=== PATIENT | female | born 1975 | race African-American/Black ===

== ENCOUNTER 2024-12-01 04:38 | Inpatient (IN) | payer MEDICAID ==
[~2024-12-01] VITALS: Ht 167.6 cm; Wt 102.4 kg
--- NOTE | 2024-12-01 05:10 | ED.PDOC ---
History of Present Illness HPI Comments 49 y/o F, with a history of diverticulitis, DM, HLD, and HTN, is BIBA for c/o sternal chest pain and nausea, today. Per EMS report, patient endorses on sudden and unprovoked onset of symptoms, this morning. She reports on pain being "pressure-like" in quality and that it radiates towards her back. Patient was noted by EMS to have been tachycardic and hypertensive on scene, with patient reporting on missing 1x dose of her HTN medication, yesterday. Patient also states on recent discharge for a right-hip replacement procedure, yesterday, as well. Patient denies any shortness of breath, palpitations, vomiting, fever, chills, or other associated symptoms or modifiers at this time. Chief Complaint: Chest Pain Time Seen by MD: 04:50 Reviewed Notes: Nurses Notes, Underground Bolting Machine Operator Notes, Medications, Allergies Allergies: Coded Allergies: Codeine (Verified Allergy, Unknown, 12/01/24) Information Source: Patient, Emergency Med Personnel Mode of Arrival: EMS Severity: Moderate Timing: Hours Duration: Since onset Prehospital treatment: 12 Lead EKG, Activity Assistant Past Medical History PAST MEDICAL HISTORY: DM, High Lipids, HTN Past Medical History (Other): diverticulitis All Other Systems: Reviewed and Negative (Comprehensive systems review obtained and negative except for what is stated in the HPI.) Physical Exam General Appearance: Mild Distress, Obese HEENT: Normal ENT Inspection, Pharynx Normal, TMs Normal Neck: Full Range of Motion, Non-Tender, Normal, Normal Inspection Respiratory: Chest Non-Tender, Lungs Clear, No Accessory Muscle Use, No Respiratory Distress, Normal Breath Sounds Cardiovascular: No Edema, No JVD, No Murmur, No Gallop, Normal Peripheral Pu lses, Tachycardia, Other (regular rhythm ) Breast Exam: Deferred Gastrointestinal: No Organomegaly, Non Tender, No Pulsatile Mass, Normal Bowel Sounds, Soft Genitalia: Deferred Pelvic: Deferred Rectal: Deferred Extremities: No calf tenderness, Normal capillary refill, Normal inspection, Normal range of motion, Non-tender, No pedal edema Musculoskeletal : Apperance: Normal Neurologic: Alert, communications department chairperson II-XII nml as Tested, No Motor Deficits, Normal Affect, Normal Mood, No Sensory Deficits Cerebellar Function: Normal Reflexes: Normal Skin: Diaphoresis, Dry, Normal Color, Warm Lymphatic: No Adenopathy Was a procedure done? Was a procedure done?: No EKG EKG : Pulse Rate (adult): 129 [place]: Normal Cardiac Rhythm: ST Block: None Hypertrophy: None ST: Normal Differential Dx Considerations may include: PE, KS, ACS, PNA, URI, angina, anxiety, costochondritis, pericarditis, gastritis, among others X-Ray, Labs, Meds, VS Vital Signs Date Time Temp Pulse Resp B/P (MAP) Pulse Ox O2 Delivery O2 Flow Rate FiO2 12/01/24 10:10 117 15 109/64 (79) 99 12/01/24 08:00 99 12/01/24 07:57 102 22 99 Room Air* 0 21 12/01/24 07:56 98.2 102 22 134/85 (101) 99 98.2 12/01/24 06:00 98.6 112 16 131/80 (97) 97 98.6 12/01/24 05:10 Room Air* 0 21 12/01/24 05:10 98.6 109 16 146/91 (109) 97 98.6 12/01/24 05:09 129 12/01/24 04:54 129 12/01/24 04:48 98.2 138 18 133/98 (110) 97 98.2 Lab Test 12/01/24 05:47 12/01/24 04:43 Range/Units Lactic Acid Level 1.2 0.4-2.0 mmol/L Magnesium Level 2.0 1.6-2.6 mg/dL Troponin I High Sensitivity < 3 L < 3 L </=34 ng/L Triglycerides Level 100 < 150 mg/dL Cholesterol Level 147 < 200 mg/dL LDL Cholesterol 67 < 100 mg/dL HDL Cholesterol 54 40-59 mg/dL White Blood Count 9.8 4.4-10.8 10^3/uL Red Blood Count 4.69 4.0-5.20 10^6/uL Hemoglobin 10.7 L 12.2-16.2 g/dL Hematocrit 34.3 L 36.0-46.0 % Mean Corpuscular Volume 73.0 L 80.0-100.0 fL Mean Corpuscular Hemoglobin 22.9 L 28.0-32.0 pg Mean Corpuscular Hemoglobin Concent 31.3 L 32.0-36.0 g/dL Red Cell Distribution Width 14.7 H 11.8-14.3 % Platelet Count 207 140-450 10^3/uL Mean Platelet Volume 9.0 6.9-10.8 fL Neutrophils (%) (Auto) 59.5 37.0-80.0 % Lymphocytes (%) (Auto) 26.0 10.0-50.0 % Monocytes (%) (Auto) 11.7 0.0-12.0 % Eosinophils (%) (Auto) 1.9 0.0-7.0 % Basophils (%) (Auto) 0.9 0.0-2.0 % Neutrophils # (Auto) 5.8 1.6-8.6 10 ^3/uL Lymphocytes # (Auto) 2.6 0.4-5.4 10 ^3/uL Monocytes # (Auto) 1.2 0-1.3 10 ^3/uL Eosinophils # (Auto) 0.2 0-0.8 10 ^3/uL Basophils # (Auto) 0.1 0-0.2 10 ^3/uL Nucleated Red Blood Cells 0.2 % Prothrombin Time 10.5 9.3-11.8 sec Prothrombin Time INR 0.99 0.9-1.15 Activated Partial Thromboplast Time 28.5 24.5-34.5 SEC D-Dimer, Quantitative 4.15 H 0.0-0.49 mg/L FEU Sodium Level 139 136-145 mmol/L Potassium Level 3.8 3.5-5.1 mmol/L Chloride Level 107 98-107 mmol/L Carbon Dioxide Level 22 20-31 mmol/L Anion Gap 10 5-15 Blood Urea Nitrogen 13 9-23 mg/dL Creatinine 0.77 0.550-1.02 mg/dL Glomerular Filtration Rate Calc 93 >90 mL/min BUN/Creatinine Ratio 16.9 10.0-20.0 Serum Glucose 142 H 74-106 mg/dL Calcium Level 9.9 8.7-10.4 mg/dL Total Bilirubin 0.6 0.2-1.0 mg/dL Aspartate Amino Transferase (AST) 23 13-40 U/L Alanine Aminotransferase (ALT) 15 7-40 U/L Alkaline Phosphatase 74 46-116 U/L B-Type Natriuretic Peptide 6.47 0-100 pg/mL Total Protein 7.1 5.7-8.2 g/dL Albumin 4.3 3.2-4.8 g/dL Lipase 34 12-53 U/L Time of 1ST Reevaluation: 05:20 Reevaluation 1ST: Unchanged Patient Education/Counseling: Diagnosis, Treatment Family Education/Counseling: No Family Present Additional Information Previous medical encounters reviewed: n/a The following tests were ordered, and results were reviewed by me: EKG, lactic acid w/reflex, D-dimer, BNP, PTPTT, lipase, CMP, CBC, blood culture, CXR Additional Information was gathered from interviewing the following independent historians: EMS I reviewed and agreed with the following test results read by other providers: CXR I discussed treatment and results with medical personnel and: Patient Departure 1 Departure Time of Disposition: 08:19 (Patient presented with chest pain that was concerning for possible STEMI, ACS, PE, Pneumonia, Muscle Strain, COPD, Dissection. Data: 1. I ordered and reviewed the result of at least 3 labs including a CBC, BMP, and Troponin. 2. I independently interpreted the following tests: EKG which shows in his tachycardia and Chest X-ray which shows benign chest.Risk:This patient has a high risk of morbidity due to further diagnostic testing or treatment and may suffer from an acute cardiac or respiratory disorder. Workup reveals concern for ACS and patient should be admitted for further workup and possible expert consultation. ) Impression: Primary Impression: Acute chest pain Disposition: 09 ADMITTED INPATIENT Admit to: Med Surg Condition: Serious Critical Care Note Critical Care Time?: Yes Critical care comment: Acute chest pain Authorized and Performed by: Sherwin Wood MD Total critical care time: Approximately 36 minutes Due to a high probability of clinically significant, life threatening de terioration, the patient required my highest level of preparedness to intervene emergently and I personally spent this critical care time directly and personally managing the patient. This critical care time included obtaining a history; examining the patient; pulse oximetry; ordering and review of studies; arranging urgent treatment with development of a management plan; evaluation of patient's response to treatment; frequent reassessment; and, discussions with other providers. This critical care time was performed to assess and manage the high probability of imminent, life-threatening deterioration that could result in multi-organ failure. It was exclusive of separately billable procedures and treating other patients and teaching time. Please see my other sections and the rest of the note for further information on patient assessment and treatment. Stability Stability form required: No Heart Score Heart Score: Heart Score Response (Comments) Value History Highly Suspicious 2 EKG Normal 0 Age 45-64 1 Risk Factors >3 or Hx ASHD 2 Troponin Normal limit 0 Total 5 I personally scribed for CHAO BAILEY MD ([email or web address]) on 12/01/24 at 05:09. Electronically submitted by Duran Ruvalcaba ([email or web address]). CHAO BAILEY MD Dec 01, 2024 05:09 SHERWIN WOOD MD Dec 01, 2024 08:20
[2024-12-01 05:11] LABS: Basophils # (auto) 0.1 10 ^3/uL (0-0.2); Basophils % (auto) 0.9 % (0.0-2.0); Eosinophils # (auto) 0.2 10 ^3/uL (0-0.8); Eosinophils % (auto) 1.9 % (0.0-7.0); Hematocrit 34.3 % (36.0-46.0); Hemoglobin 10.7 g/dL (12.2-16.2); Lymphocytes # (auto) 2.6 10 ^3/uL (0.4-5.4); Mean Corpuscular Hemoglobin 22.9 pg (28.0-32.0); Mean Corpuscular Hgb Conc. 31.3 g/dL (32.0-36.0); Monocytes # (auto) 1.2 10 ^3/uL (0-1.3); Monocytes % (auto) 11.7 % (0.0-12.0); Neutrophils # (auto) 5.8 10 ^3/uL (1.6-8.6); Neutrophils % (auto) 59.5 % (37.0-80.0); Nucleated Red Blood Cells % 0.2 %; Platelet Count (auto) 207 10^3/uL (140-450); Red Blood Cells 4.69 10^6/uL (4.0-5.20); Red Cell Distribution Width 14.7 % (11.8-14.3); White Blood Cell 9.8 10^3/uL (4.4-10.8)
--- NOTE | 2024-12-01 05:32 | DVH ---
CHEST RADIOGRAPH Indication: Chest pain Technique: Single frontal view of the chest was obtained Comparison: None FINDINGS: Lines and Tubes: None Lungs: No focal consolidation. Pleura: No effusion. No pneumothorax. Cardiomediastinal contours: Unremarkable Bones: No acute osseous abnormality. IMPRESSION: 1. No acute cardiopulmonary disease.
[2024-12-01 06:06] LABS: Alanine Aminotransferase 15 U/L (7-40); Albumin 4.3 g/dL (3.2-4.8); Alkaline Phosphatase 74 U/L (46-116); Anion Gap 10 (5-15); Aspartate Aminotransferase 23 U/L (13-40); BUN/Creatinine Ratio 16.9 (10.0-20.0); Blood Urea Nitrogen 13 mg/dL (9-23); Calcium 9.9 mg/dL (8.7-10.4); Carbon Dioxide 22 mmol/L (20-31); Lipase 34 U/L (12-53); Potassium 3.8 mmol/L (3.5-5.1); Sodium 139 mmol/L (136-145); Total Protein 7.1 g/dL (5.7-8.2)
[2024-12-01 06:07] LABS: Bilirubin, Total 0.6 mg/dL (0.2-1.0); Chloride 107 mmol/L (98-107); Glucose 142 mg/dL (74-106)
[2024-12-01 06:09] LABS: INR 0.99 (0.9-1.15); Partial Thromboplastin Time 28.5 SEC (24.5-34.5); Prothrombin Time 10.5 sec (9.3-11.8)
--- NOTE | 2024-12-01 06:25 | ECG ---
[facility] Test Date: 2024-12-01 Test Time: 04:54:51 Pat Name: MORALES DAVIS Department: ED Room: [address] [place] [address] Gender: F Automotive Sales Professional: AM : 1975 Requested By: CHAO BAILEY Order Number: [id number] Reading MD: Paco Landaverde Measurements Intervals [place] Rate: 129 P: 51 NH: 122 QRS: 32 QRSD: 88 T: 26 QT: 302 QTc: 443 Interpretive Statements Sinus tachycardia Probable left atrial enlargement Borderline repolarization abnormality Baseline wander in lead(s) II,III,aVR,aVL,aVF,V1,V3,V4,V5 Electronically Signed On 12-01-2024 18:51:30 PDT by Paco Landaverde Please click the below link to view image of tracing.
[2024-12-01] MEDS: IOHEXOL 350 MG/ML 100ML IJ ONE (07:11)
--- NOTE | 2024-12-01 07:30 | DVH ---
CTA Chest with intravenous contrast INDICATION: Chest pain, tachycardic, r/o PE COMPARISON: Chest radiograph performed on 12/01/2024. TECHNIQUE: Multidetector spiral CTA of the chest was performed of the chest with 100 cc of omnipaque 350 intravenous contrast. PULMONARY ANGIOGRAPHY PROTOCOL was utilized using a bolus-tracking techniqu e centered on the main pulmonary artery. Coronal and sagittal multiplanar and MIP reformats were perf ormed. Radiation Dose : 1. Chest: CTDI volume is 5.92 mGy. Dose-length product is 865.02 mGy*cm The dose indicators for CT are the volume Computed Tomography (CT) Dose Index (CTDIvol) and the Dose Length Product (DLP), and are measured in units of mGy and mGy-cm, respectively. These indicators are not patient dose, but values generated from the CT scanner acquisition factors. The report includes radiation exposure data for exposures received during this examination. FINDINGS: Pulmonary artery: No central, lobar or proximal segmental pulmonary embolus. Lower neck: Multinodular thyroid. Lungs: No evidence of pulmonary nodules, mass or consolidation. Central airways: Patent. Pleura: No pneumothorax. No pleural effusions. Heart/Vascular Structures: The heart is normal in size. No pericardial effusion. Thoracic aorta is no rmal in caliber. No aneurysm or dissection. Lymph Nodes: No mediastinal or hilar lymphadenopathy. Esophagus:Grossly unremarkable. Musculoskeletal: Unremarkable. Body wall: Unremarkable. Upper abdomen: Unremarkable. IMPRESSION: 1. No evidence of pulmonary embolism. 2. No acute disease. 3. Multinodular thyroid. This can be further evaluated with thyroid ultrasound.
[2024-12-01 07:57] VITALS: PULSE 102; RESP 22; O2SAT 99
[2024-12-01] MEDS ORDERED: ACETAMINOPHEN 325 MG TAB PO PRN (11:45)
[2024-12-01] MEDS ORDERED: NITROGLYCERIN 0.4 MG SL TAB SL PRN (11:45)
[2024-12-01] MEDS ORDERED: DEXTROSE (50%) 50ML SYRG IV PRN (12:15)
[2024-12-01 12:16] LABS: INR 1.04 (0.9-1.15); Partial Thromboplastin Time 25.6 SEC (24.5-34.5)
--- NOTE | 2024-12-01 12:30 | DVHHP2 ---
History of Present Illness History of Present Illness 49 y/o F, with a history of diverticulitis, DM, HLD, and HTN, is BIBA for c/o sternal chest pain and nausea, today. Per EMS report, patient endorses on sudden and unprovoked onset of symptoms, this morning. She reports on pain being "pressure-like" in quality and that it radiates towards her back. Patient was noted by EMS to have been tachycardic and hypertensive on scene, with patient reporting on missing 1x dose of her HTN medication, yesterday. Patient also states on recent discharge for a right-hip replacement procedure, yesterday, as well. Patient denies any shortness of breath, palpitations, vomiting, fever, chills, or other associated symptoms or modifiers at this time. She was noted to be tachycardic in the heart rate 100 to 120s in the ER. Given her chest discomfort with the tachycardia she has been brought into the hospital for further evaluation and management. Patient apparently had right hip surgery done at this hospital and discharged home 24 hours ago with the home physical therapy. Past Medical History Hypertension diabetes osteoarthritis Smoke: No ALCOHOL: rare Drugs: None Lives: with Family Review of Systems Review of Systems She denies any shortness for breath dizziness or lightheadedness. No headaches fevers chills or sweats. Patient says she was using walker to walk and home health is being arranged for home PT. Other review of systems reviewed normal. Allergies: Coded Allergies: Codeine (Verified Allergy, Unknown, 12/01/24) Medications Current Medications Medications Dose Ordered Sig/Venkatesh Route Start Time Stop Time Status Last Admin Dose Admin Nitroglycerin 0.4 mg Q5MINP PRN SL 12/01/24 11:45 Morphine Sulfate 2 mg Q30M PRN IV 12/01/24 11:45 Pantoprazole Sodium 40 mg BID IV 12/01/24 22:00 Ondansetron HCl 4 mg Q6HPRN PRN IV 12/01/24 11:45 Metoprolol Tartrate 25 mg BID PO 12/01/24 22:00 Acetaminophen 650 mg Q6HP PRN PO 12/01/24 11:45 Enoxaparin Sodium 40 mg DAILY SC 12/02/24 10:00 Diagnostic Test (Pha) 1 strip ACHS 12/01/24 17:00 Insulin Human Regular ACHS SC 12/01/24 17:00 Dextrose 50 ml UD PRN IV 12/01/24 12:15 Acetaminophen/ Hydrocodone Bitart 1 tab Q4HPRN PRN PO 12/01/24 12:15 Exam Vital Signs Vital Signs Date Time Temp Pulse Resp B/P (MAP) Pulse Ox O2 Delivery O2 Flow Rate FiO2 12/01/24 12:00 132 16 109/64 (79) 98 12/01/24 07:57 Room Air* 0 21 12/01/24 07:56 98.2 98.2 Exam She was comfortable in bed complains of mild chest discomfort in the left anterior chest. Not in any acute severe cardiopulmonary distress. HEENT pupils equal round react to light. Neck supple no JVD. Heart regular rate and rhythm tachycardia S1 plus S2. No murmurs. Lungs fair air movement chest tube will expansion without any rales or wheezes. Abdomen is obese soft nontender positive bowel sounds. Extremities positive distal pedal pulses. Right hip recent surgery area is covered with a dressing with some drainage. No erythema or significant edema noted. Labs/Xrays Labs Test 12/01/24 11:54 12/01/24 05:47 12/01/24 04:43 Range/Units Prothrombin Time 11.0 9.3-11.8 sec Prothrombin Time INR 1.04 0.9-1.15 Activated Partial Thromboplast Time 25.6 24.5-34.5 SEC Troponin I High Sensitivity < 3 L </=34 ng/L Lactic Acid Level 1.2 0.4-2.0 mmol/L White Blood Count 9.8 4.4-10.8 10^3/uL Red Blood Count 4.69 4.0-5.20 10^6/uL Hemoglobin 10.7 L 12.2-16.2 g/dL Hematocrit 34.3 L 36.0-46.0 % Mean Corpuscular Volume 73.0 L 80.0-100.0 fL Mean Corpuscular Hemoglobin 22.9 L 28.0-32.0 pg Mean Corpuscular Hemoglobin Concent 31.3 L 32.0-36.0 g/dL Red Cell Distribution Width 14.7 H 11.8-14.3 % Platelet Count 207 140-450 10^3/uL Mean Platelet Volume 9.0 6.9-10.8 fL Neutrophils (%) (Auto) 59.5 37.0-80.0 % Lymphocytes (%) (Auto) 26.0 10.0-50.0 % Monocytes (%) (Auto) 11.7 0.0-12.0 % Eosinophils (%) (Auto) 1.9 0.0-7.0 % Basophils (%) (Auto) 0.9 0.0-2.0 % Neutrophils # (Auto) 5.8 1.6-8.6 10 ^3/uL Lymphocytes # (Auto) 2.6 0.4-5.4 10 ^3/uL Monocytes # (Auto) 1.2 0-1.3 10 ^3/uL Eosinophils # (Auto) 0.2 0-0.8 10 ^3/uL Basophils # (Auto) 0.1 0-0.2 10 ^3/uL Nucleated Red Blood Cells 0.2 % D-Dimer, Quantitative 4.15 H 0.0-0.49 mg/L FEU Sodium Level 139 136-145 mmol/L Potassium Level 3.8 3.5-5.1 mmol/L Chloride Level 107 98-107 mmol/L Carbon Dioxide Level 22 20-31 mmol/L Anion Gap 10 5-15 Blood Urea Nitrogen 13 9-23 mg/dL Creatinine 0.77 0.550-1.02 mg/dL Glomerular Filtration Rate Calc 93 >90 mL/min BUN/Creatinine Ratio 16.9 10.0-20.0 Serum Glucose 142 H 74-106 mg/dL Calcium Level 9.9 8.7-10.4 mg/dL Total Bilirubin 0.6 0.2-1.0 mg/dL Aspartate Amino Transferase (AST) 23 13-40 U/L Alanine Aminotransferase (ALT) 15 7-40 U/L Alkaline Phosphatase 74 46-116 U/L B-Type Natriuretic Peptide 6.47 0-100 pg/mL Total Protein 7.1 5.7-8.2 g/dL Albumin 4.3 3.2-4.8 g/dL Lipase 34 12-53 U/L Assessment/Plan Assessment/Plan Given her chest discomfort with hypertension diabetic risk factors we will bring her to the hospital to rule out acute coronary UT. we will do serial troponins. We will do 2D echocardiogram. Cardiac consultation will be obtained. Otherwise physical therapy. Change right hip dressing daily. Accu-Cheks. Control her blood pressure. For tachycardia we will resume her home beta-terry and heart rate controlling medications as needed. Otherwise continue rest of supportive care and treatment. We will also check thyroid panel for tachycardia. DVT GI prophylaxis. Discussed with the patient regarding care plan. Plan discussed with: Patient My Orders Orders - JANETTE TORRES MD Procedure Category Date Status Time Admit ADMIT 12/01/24 Transmitted 11:40 Cardiac DIET 12/01/24 Transmitted Diet-2gna,Lofat,Lochol Lunch Echo 2d Mode Cardiac US 12/01/24 Logged DOP 11:40 * Gi Dvh Harvest Worker Field Crop CONS 12/01/24 Transmitted 11:40 Nitroglycerin PHA 12/01/24 In Process Sublingual (Ntrostat 11:45 Morphine Sulfate PHA 12/01/24 In Process Injection 11:45 Stat Ekg For Chest AKIRA 12/01/24 In Process Pain 11:40 Notify Md Of Changes AKIRA 12/01/24 In Process From Base 11:40 Duct Installer For AKIRA 12/01/24 In Process 24 Hours 11:40 Emergency Dysrhythmia AKIRA 12/01/24 In Process Protocol 11:40 Rhythm Strips Once AKIRA 12/01/24 In Process Every Shift 11:40 Oxygen By Nasal RT 12/01/24 Transmitted Cannula 11:40 Pantoprazole PHA 12/01/24 In Process (Protonix) 22:00 Ondansetron Hcl PHA 12/01/24 In Process (Zofran) 11:45 Metoprolol Tartrate PHA 12/01/24 In Process Tablet (Lopressor Ta 22:00 Acetaminophen Tablet PHA 12/01/24 In Process (Tylenol Tablet) 11:45 Pt Request For Service PT 12/01/24 Logged 11:41 Enoxaparin Sodium PHA 12/02/24 In Process (Lovenox) 10:00 Drug Screen LAB 12/01/24 Logged 11:41 * Cardiology Consult CONS 12/01/24 Transmitted 11:41 Glucose Blood PHA 12/01/24 In Process (Accu-Chek Comfort 17:00 Insulin R (Human) PHA 12/01/24 In Process (Insulin R) 17:00 Dextrose 50% Syringe PHA 12/01/24 In Process 12:15 *Consult Dr[address] Wilhelm CONS 12/01/24 Transmitted Elisa 12:07 Hydrocodone-Acet PHA 12/01/24 In Process 5/325mg Tab (Sharon 12:15 Problem List: (1) Acute chest pain JANETTE TORRES MD Dec 01, 2024 12:29
[2024-12-01] MEDS: DIGOXIN (250MCG/ML) 2 ML AMPULE IV ONE (12:35)
--- NOTE | 2024-12-01 13:17 | DVHINCON2 ---
GI Consult Consult Note GI consult note Date of Consultation: 12/01/2024 Chief Complaint: Epigastric pain Referring Physician: Dr. Reed H&P: 49-year-old female with past medical history of diverticulitis, DM, HLD and hypertension presented to ER with chest pain. Patient complaining of chest tightness and radiating to her back Complains of epigastric pain, improving now. Patient had nausea. No vomiting/hematemesis Patient has history of GERD, worse with certain foods. No medications for this No EGD in past. SP colonoscopy two months ago WNL per patient Patient is SP right hip surgery 11/27/2024 Past Medical History: DM, High Lipids, HTN, diverticulitis Past Surgical History: Right hip replacement Social History: NO smoking, drinking ETOH and use of illegal drugs. Family History: Noncontributory Review of Systems: Constitutional: no fever, chill, weight loss HEENT: no eye pain, no hearing loss, no oral lesion, no scleral icterus Heart: no chest pain, no chest pressure Lung: no cough, no dyspnea with exertion Abdomen: see HPI Physical exam: General: NAD, AAOX3 Chest: lung todd clear to auscultation Heart: RRR, no murmur Abdomen: non-distended, no tenderness to palpation, +BS Labs: Labs Test 12/01/24 11:54 12/01/24 05:47 12/01/24 04:43 Range/Units Prothrombin Time 11.0 9.3-11.8 sec Prothrombin Time INR 1.04 0.9-1.15 Activated Partial Thromboplast Time 25.6 24.5-34.5 SEC Troponin I High Sensitivity < 3 L </=34 ng/L Lactic Acid Level 1.2 0.4-2.0 mmol/L White Blood Count 9.8 4.4-10.8 10^3/uL Red Blood Count 4.69 4.0-5.20 10^6/uL Hemoglobin 10.7 L 12.2-16.2 g/dL Hematocrit 34.3 L 36.0-46.0 % Mean Corpuscular Volume 73.0 L 80.0-100.0 fL Mean Corpuscular Hemoglobin 22.9 L 28.0-32.0 pg Mean Corpuscular Hemoglobin Concent 31.3 L 32.0-36.0 g/dL Red Cell Distribution Width 14.7 H 11.8-14.3 % Platelet Count 207 140-450 10^3/uL Mean Platelet Volume 9.0 6.9-10.8 fL Neutrophils (%) (Auto) 59.5 37.0-80.0 % Lymphocytes (%) (Auto) 26.0 10.0-50.0 % Monocytes (%) (Auto) 11.7 0.0-12.0 % Eosinophils (%) (Auto) 1.9 0.0-7.0 % Basophils (%) (Auto) 0.9 0.0-2.0 % Neutrophils # (Auto) 5.8 1.6-8.6 10 ^3/uL Lymphocytes # (Auto) 2.6 0.4-5.4 10 ^3/uL Monocytes # (Auto) 1.2 0-1.3 10 ^3/uL Eosinophils # (Auto) 0.2 0-0.8 10 ^3/uL Basophils # (Auto) 0.1 0-0.2 10 ^3/uL Nucleated Red Blood Cells 0.2 % D-Dimer, Quantitative 4.15 H 0.0-0.49 mg/L FEU Sodium Level 139 136-145 mmol/L Potassium Level 3.8 3.5-5.1 mmol/L Chloride Level 107 98-107 mmol/L Carbon Dioxide Level 22 20-31 mmol/L Anion Gap 10 5-15 Blood Urea Nitrogen 13 9-23 mg/dL Creatinine 0.77 0.550-1.02 mg/dL Glomerular Filtration Rate Calc 93 >90 mL/min BUN/Creatinine Ratio 16.9 10.0-20.0 Serum Glucose 142 H 74-106 mg/dL Calcium Level 9.9 8.7-10.4 mg/dL Total Bilirubin 0.6 0.2-1.0 mg/dL Aspartate Amino Transferase (AST) 23 13-40 U/L Alanine Aminotransferase (ALT) 15 7-40 U/L Alkaline Phosphatase 74 46-116 U/L B-Type Natriuretic Peptide 6.47 0-100 pg/mL Total Protein 7.1 5.7-8.2 g/dL Albumin 4.3 3.2-4.8 g/dL Lipase 34 12-53 U/L Imaging: Assessment: Chest pain Nausea History of GERD Plan: Discussed with Dr. Randall Monitor labs Protonix and Carafate Zofran as needed Cardiology consult pending We will continue to follow this patient Thank you for this consult Date of Service: Dec 01, 2024 Billing Provider: HSREYAS GREY Common Visit Codes: CONSULT ONLY Consultation Codes: [id number] CONSULT <45MIN SHREYAS GREY Dec 01, 2024 13:17
--- NOTE | 2024-12-01 15:44 | DVHINCON2 ---
Date Seen: Dec 01, 2024 Referring Physician MD Derek Reason for Consultation Chest pain History of Present Illness This is a 49-year-old female patient who presents to emergency room with chief complaint of chest pain. The patient reports that the chest pain began at approximately 9:00 p.m. last night. She describes it as unprovoked, intermittent, squeezing in nature, substernal with radiation to her back. Associated symptoms include nausea. Initial twelve lead electrocardiogram reveals sinus tachycardia without any significant ST segment changes. Serial troponin levels have been negative. Significant past medical history includes hypertension, dyslipidemia, type 2 diabetes mellitus, diverticulitis, and osteoarthritis. Of note, the patient recently underwent a right hip replacement on 11/27/2024 at this facility (under different ). Past Medical History Past medical history reviewed. No other significant than mentioned above. Past Surgical History Right hip replacement on 11/27/2024 Family History Family history reviewed. Social History The patient reports that she quit vaping last month Denies any illicit drug use Denies any alcohol use Allergies: Coded Allergies: Codeine (Verified Allergy, Unknown, 12/01/24) Home Meds Home medications reviewed. Current Medications Current Medications Medications (Trade) Dose Ordered Sig/Venkatesh Route PRN Reason Start Time Stop Time Status Last Admin Nitroglycerin (Ntrostat Sublingual) 0.4 mg Q5MINP PRN SL FOR CHEST PAIN 12/01/24 11:45 Morphine Sulfate 2 mg Q30M PRN IV FOR CHEST PAIN 12/01/24 11:45 Pantoprazole Sodium (Protonix) 40 mg BID IV 12/01/24 22:00 Ondansetron HCl (Zofran) 4 mg Q6HPRN PRN IV NAUSEA / VOMITING 12/01/24 11:45 Metoprolol Tartrate (Lopressor Tablet) 25 mg BID PO 12/01/24 22:00 Acetaminophen (Tylenol Tablet) 650 mg Q6HP PRN PO PAIN SCALE 1-3 OR TEMP>100.4 12/01/24 11:45 Enoxaparin Sodium (Lovenox) 40 mg DAILY SC 12/02/24 10:00 Diagnostic Test (Pha) (Accu-Chek Comfort Curve T) 1 strip ACHS 12/01/24 17:00 Insulin Human Regular (InsuLIN R) ACHS SC 12/01/24 17:00 Dextrose 50 ml UD PRN IV Blood Sugar LESS THAN 60 12/01/24 12:15 Acetaminophen/ Hydrocodone Bitart ([place] 5/325MG Tab) 1 tab Q4HPRN PRN PO SEVERE PAIN (7-10 PAIN SCALE) 12/01/24 12:15 Review of Systems Constitutional: No symptom reported Ears, Nose, & Throat: No symptom reported Eyes: No symptom reported Neurological: No symptoms reported Pulmonary/Respiratory: No symptoms reported Cardiovascular: Chest pain Gastrointestinal: Nausea Genitourinary: No symptom reported Musculoskeletal: No symptom reported Skin: No symptom reported Psychiatric: No symptom reported Endocrine: No symptom reported Hematologic/Lymphatic: No symptom reported Vital Signs Vital Signs Date Time Temp Pulse Resp B/P (MAP) Pulse Ox O2 Delivery O2 Flow Rate FiO2 12/01/24 15:00 110 14 125/84 (98) 95 12/01/24 07:57 Room Air* 0 21 12/01/24 07:56 98.2 98.2 Physical Exam General Appearance: Cooperative. Obese Pulmonary/Respiratory: Clear, bilateral breaths sounds. Cardiovascular/Chest: Regular rate and rhythm. Peripheral Pulses: 2+ Radial (R). 2+ Radial (L). 2+ Pedal (R). 2+ Pedal (L) Abdominal Exam: Normal bowel sounds. Ankle Exam: Negative ankle edema Lower extremities: Negative lower extremity edema Neuro/Mental Status: A/OX4, coherent. Thoughts/Psych: Normal thought pattern. Appropriate mood and affect. Good judgment and insight. Appearance: No acute distress. Skin Exam: Normal inspection. Normal color. Warm and dry. Labs/Diagnostic Data Labs Test 12/01/24 11:54 12/01/24 05:47 12/01/24 04:43 Range/Units Prothrombin Time 11.0 9.3-11.8 sec Prothrombin Time INR 1.04 0.9-1.15 Activated Partial Thromboplast Time 25.6 24.5-34.5 SEC Troponin I High Sensitivity < 3 L </=34 ng/L Lactic Acid Level 1.2 0.4-2.0 mmol/L White Blood Count 9.8 4.4-10.8 10^3/uL Red Blood Count 4.69 4.0-5.20 10^6/uL Hemoglobin 10.7 L 12.2-16.2 g/dL Hematocrit 34.3 L 36.0-46.0 % Mean Corpuscular Volume 73.0 L 80.0-100.0 fL Mean Corpuscular Hemoglobin 22.9 L 28.0-32.0 pg Mean Corpuscular Hemoglobin Concent 31.3 L 32.0-36.0 g/dL Red Cell Distribution Width 14.7 H 11.8-14.3 % Platelet Count 207 140-450 10^3/uL Mean Platelet Volume 9.0 6.9-10.8 fL Neutrophils (%) (Auto) 59.5 37.0-80.0 % Lymphocytes (%) (Auto) 26.0 10.0-50.0 % Monocytes (%) (Auto) 11.7 0.0-12.0 % Eosinophils (%) (Auto) 1.9 0.0-7.0 % Basophils (%) (Auto) 0.9 0.0-2.0 % Neutrophils # (Auto) 5.8 1.6-8.6 10 ^3/uL Lymphocytes # (Auto) 2.6 0.4-5.4 10 ^3/uL Monocytes # (Auto) 1.2 0-1.3 10 ^3/uL Eosinophils # (Auto) 0.2 0-0.8 10 ^3/uL Basophils # (Auto) 0.1 0-0.2 10 ^3/uL Nucleated Red Blood Cells 0.2 % D-Dimer, Quantitative 4.15 H 0.0-0.49 mg/L FEU Sodium Level 139 136-145 mmol/L Potassium Level 3.8 3.5-5.1 mmol/L Chloride Level 107 98-107 mmol/L Carbon Dioxide Level 22 20-31 mmol/L Anion Gap 10 5-15 Blood Urea Nitrogen 13 9-23 mg/dL Creatinine 0.77 0.550-1.02 mg/dL Glomerular Filtration Rate Calc 93 >90 mL/min BUN/Creatinine Ratio 16.9 10.0-20.0 Serum Glucose 142 H 74-106 mg/dL Calcium Level 9.9 8.7-10.4 mg/dL Total Bilirubin 0.6 0.2-1.0 mg/dL Aspartate Amino Transferase (AST) 23 13-40 U/L Alanine Aminotransferase (ALT) 15 7-40 U/L Alkaline Phosphatase 74 46-116 U/L B-Type Natriuretic Peptide 6.47 0-100 pg/mL Total Protein 7.1 5.7-8.2 g/dL Albumin 4.3 3.2-4.8 g/dL Lipase 34 12-53 U/L Assessment Chest pain Rule out structural heart disease Hypertension Dyslipidemia Pulmonary embolism ruled out Type 2 diabetes mellitus Osteoarthritis Plan/Recommendation We will continue with following plan/recommendations (Dr. Landaverde): * Transthoracic echocardiogram to evaluate cardiac function * Chest pain protocol * HEART score: 3 points * CTA negative for PE * Cardiac surveillance: notify Cardiology for any ECG changes * Check UDS Case discussed with . The patient has been experiencing chest pain, 12 lead electrocardiogram shows no ST segment changes and serial troponin levels have been negative. If cardiac symptoms persist, the patient may benefit from a nuclear stress test. Further recommendations per clinical course and progression. Thank you for allowing us to care for this patient. Please call with any questions or concerns. Critical care time spent: 43 minutes This medical document was created using an electronic medical record system with voice recognition software and computerized dictation system. Although this document has been carefully reviewed, there might still be some phonetic and typographical errors. Occasional wrong-word or ``sound-alike substitutions may have occurred due to the inherent limitations of voice recognition software. These areas are purely typographical due to imperfections of the software programs and do not reflect any compromise in the patient's medical care. Please read the chart carefully and recognize, using context, where these substitutions have occurred. Plan discussed with: Patient NYHA Physical activity limitations: NA Date of Service: Dec 01, 2024 Billing Provider: ALLEN MURILLO Cardiology Common Codes: [id number] INP/OBS CARE (High) Cardiology Consultation Codes: [id number] CONSULT <45MIN ALLEN MURILLO Dec 01, 2024 15:44
[2024-12-01] MEDS: InsuLIN REG 1unit/0.01ml Soln (100units/ml) SC SCH (17:00)
[2024-12-01] MEDS: ACCU-CHEK COMFORT CURVE STRIP VI SCH (17:13)
[2024-12-01 19:35] VITALS: PULSE 116; RESP 16; O2SAT 98
[2024-12-01] MEDS: ONDANSETRON HCL 4 MG/2 ML VIAL IV PRN (20:22)
[2024-12-01] MEDS: MORPHINE SULFATE INJ 2 MG/ml SYRG IV PRN (20:23)
[2024-12-01] MEDS: METOPROLOL TARTRATE 25 MG TAB PO SCH (22:04)
[2024-12-01] MEDS: PANTOPRAZOLE 40 MG/10 ML VIAL INJ IV SCH (22:04)
[2024-12-02] VITALS (8 sets, daily range): BP systolic 109–114; BP diastolic 67–75; PULSE 85–114; RESP 18–20; TEMP 98–98.6; O2SAT 94–100
[2024-12-02] MEDS: HYDROcodone-ACET 5/325MG TAB PO PRN (09:49)
[2024-12-02] MEDS: ENOXAPARIN SOD 40 MG/0.4 ML SYRINGE SC SCH (09:49)
--- NOTE | 2024-12-02 13:56 | DVHSR ---
APPROVED REPORT EXAM: Two-dimensional and M-mode echocardiogram with Doppler and color Doppler. Blood Pressure: 109/64 mmHg INDICATION Chest Pain RISK FACTORS Obesity: Height: 5' 7", Weight: 230 DIMENSIONS LVDd3.4 (3.8-5.7cm)LA (2D)3.6 (1.9-4.0cm)Aortic Root2.9 (2.0-3.7cm) LVDs2.6 (2.5-4.0cm)LA (MM) (1.9-4.0cm)Aortic Cusp Exc1.6 (1.5-2.0cm) EF (%) 50.0 (55-70%)Rt. Atrium (1.9-4.0cm)Asc. Aorta cm IVSd1.0 (0.7-1.1cm)RV (D) (1.8-2.4cm) PWd0.9 (0.7-1.1cm) Mitral Valve MitralMitral Stenosis E wave0.80m/sMV Mean GR.mmHg A wave1.20m/sMV Peak GR.mmHg E/A ratio0.72D MVAcm2 Aortic Valve Aortic ValveAortic Stenosis V11.10m/Jovan Mean GR.4mmHg V21.20m/Jovan Peak GR.7mmHg LVOT Diameter2.0 (1.8-2.4cm)Doppler AVA2.88cm2 Pulmonic Valve V21.00m/s Other Information Quality : Technically LimitedRhythm : Tachycardia Technically limited study due to body habitus and rhythm. Conclusion Sinus tachycardia. Concentric LVH. Septal hypertrophy. Mild aortic root enlargement. Left atrial enlargement. Dilation of the sinuses of Valsalva. Mild calcification of the sinuses. The mitral and tricuspid ar e structurally normal. Left ventricular function is preserved. EF is about 50-55% with normal RV function. Dopplers unremarkable. No pericardial effusion masses or vegetations.
--- NOTE | 2024-12-02 14:00 | DVHPN2 ---
Consult Progress Note Subjective Patient reports: No new complaints, Feels better Review of Systems: CVS:Normal (Denies active or overnight CP.) Objective vital signs Vital Sign Date Time Temp Pulse Resp B/P (MAP) Pulse Ox O2 Delivery O2 Flow Rate FiO2 12/02/24 12:55 98.0 85 18 114/75 (88) 95 98.0 12/02/24 08:00 Room Air* 0 21 Total Intake and Output 12/01/24 12/01/24 12/02/24 15:00 23:00 07:00 Intake Total 240 ml Balance 240 ml medications Current Medications Medications Dose Ordered Sig/Venkatesh Route Start Time Stop Time Status Last Admin Dose Admin Nitroglycerin 0.4 mg Q5MINP PRN SL 12/01/24 11:45 Morphine Sulfate 2 mg Q30M PRN IV 12/01/24 11:45 12/01/24 20:23 2 MG Pantoprazole Sodium 40 mg BID IV 12/01/24 22:00 12/02/24 09:49 40 MG Ondansetron HCl 4 mg Q6HPRN PRN IV 12/01/24 11:45 12/01/24 20:22 4 MG Metoprolol Tartrate 25 mg BID PO 12/01/24 22:00 12/02/24 09:48 25 MG Acetaminophen 650 mg Q6HP PRN PO 12/01/24 11:45 Enoxaparin Sodium 40 mg DAILY SC 12/02/24 10:00 12/02/24 09:49 40 MG Diagnostic Test (Pha) 1 strip ACHS 12/01/24 17:00 12/02/24 06:15 1 STRIP Insulin Human Regular ACHS SC 12/01/24 17:00 Dextrose 50 ml UD PRN IV 12/01/24 12:15 Acetaminophen/ Hydrocodone Bitart 1 tab Q4HPRN PRN PO 12/01/24 12:15 12/02/24 09:49 1 TAB Examination: CVS:Normal (Telemetry reviewed and consistent with normal ) laboratory and microbiology Laboratory Tests 12/01/24 04:43 Test 12/01/24 04:43 Range/Units Serum Glucose 142 H 74-106 mg/dL Problem List/Assessment/Plan Problem List/Assessment/Plan Assessment Chest pain Rule out structural heart disease Hypertension Dyslipidemia Pulmonary embolism ruled out Type 2 diabetes mellitus Osteoarthritis Plan/Recommendation We will continue with following plan/recommendations (Dr. Landaverde): * Transthoracic echocardiogram with normal EF, No significant valvular structural abnormalities. * Chest pain protocol * HEART score: 3 points * CTA negative for PE, no significant coronary calcifications noted on review. * Cardiac surveillance: notify Cardiology for any ECG changes Case discussed with . The patient has been experiencing chest pain, 12 lead electrocardiogram shows no ST segment changes and serial troponin levels have been negative. Normal EF on ECHO with LVH. POC discussed with patient, plan for outpatient follow up for ischemic workup . Stable from cardiology standpoint for [place]. Thank you for allowing us to care for this patient. Please call with any questions or concerns. This medical document was created using an electronic medical record system with voice recognition software and computerized dictation system. Although this document has been carefully reviewed, there might still be some phonetic and typographical errors. Occasional wrong-word or ``sound-alike substitutions may have occurred due to the inherent limitations of voice recognition software. These areas are purely typographical due to imperfections of the software programs and do not reflect any compromise in the patient's medical care. Please read the chart carefully and recognize, using context, where these substitutions have occurred. Thank you for allowing me to participate in the management of this patient. The treatment plan was discussed with and agreed upon by patient/family including requesting consultants and ordering of imaging/procedures. Plan discussed with: Patient Date of Service: Dec 02, 2024 Billing Provider: KIARA SOLOMON Common Visit Codes: [id number] INP/OBS CARE(HIGH) KIARA SOLOMON Dec 02, 2024 14:00
--- NOTE | 2024-12-02 15:29 | DVHDS2 ---
Discharge Summary Date of Admission Dec 01, 2024 at 11:40 Date of Discharge: Dec 02, 2024 Labs/Diagnostic Data: Laboratory Results Test 12/02/24 11:39 12/01/24 11:54 12/01/24 11:41 12/01/24 05:47 POC Glucose 150 mg/dl (70-106) Prothrombin Time 11.0 sec (9.3-11.8) Prothrombin Time INR 1.04 (0.9-1.15) Activated Partial Thromboplast Time 25.6 SEC (24.5-34.5) Troponin I High Sensitivity < 3 ng/L (</=34) Thyroid Stimulating Hormone (TSH) 0.68 uIU/mL (0.55-4.78) Free Thyroxine (T4) Calculated 1.13 ng/dL (0.89-1.76) Hemoglobin A1c 5.8 % A1C (<5.7) Lactic Acid Level 1.2 mmol/L (0.4-2.0) Magnesium Level 2.0 mg/dL (1.6-2.6) Triglycerides Level 100 mg/dL (< 150) Cholesterol Level 147 mg/dL (< 200) LDL Cholesterol 67 mg/dL (< 100) HDL Cholesterol 54 mg/dL (40-59) Test 12/01/24 04:43 White Blood Count 9.8 10^3/uL (4.4-10.8) Red Blood Count 4.69 10^6/uL (4.0-5.20) Hemoglobin 10.7 g/dL (12.2-16.2) Hematocrit 34.3 % (36.0-46.0) Mean Corpuscular Volume 73.0 fL (80.0-100.0) Mean Corpuscular Hemoglobin 22.9 pg (28.0-32.0) Mean Corpuscular Hemoglobin Concent 31.3 g/dL (32.0-36.0) Red Cell Distribution Width 14.7 % (11.8-14.3) Platelet Count 207 10^3/uL (140-450) Mean Platelet Volume 9.0 fL (6.9-10.8) Neutrophils (%) (Auto) 59.5 % (37.0-80.0) Lymphocytes (%) (Auto) 26.0 % (10.0-50.0) Monocytes (%) (Auto) 11.7 % (0.0-12.0) Eosinophils (%) (Auto) 1.9 % (0.0-7.0) Basophils (%) (Auto) 0.9 % (0.0-2.0) Neutrophils # (Auto) 5.8 10 ^3/uL (1.6-8.6) Lymphocytes # (Auto) 2.6 10 ^3/uL (0.4-5.4) Monocytes # (Auto) 1.2 10 ^3/uL (0-1.3) Eosinophils # (Auto) 0.2 10 ^3/uL (0-0.8) Basophils # (Auto) 0.1 10 ^3/uL (0-0.2) Nucleated Red Blood Cells 0.2 % D-Dimer, Quantitative 4.15 mg/L FEU (0.0-0.49) Sodium Level 139 mmol/L (136-145) Potassium Level 3.8 mmol/L (3.5-5.1) Chloride Level 107 mmol/L (98-107) Carbon Dioxide Level 22 mmol/L (20-31) Anion Gap 10 (5-15) Blood Urea Nitrogen 13 mg/dL (9-23) Creatinine 0.77 mg/dL (0.550-1.02) Glomerular Filtration Rate Calc 93 mL/min (>90) BUN/Creatinine Ratio 16.9 (10.0-20.0) Serum Glucose 142 mg/dL (74-106) Calcium Level 9.9 mg/dL (8.7-10.4) Total Bilirubin 0.6 mg/dL (0.2-1.0) Aspartate Amino Transferase (AST) 23 U/L (13-40) Alanine Aminotransferase (ALT) 15 U/L (7-40) Alkaline Phosphatase 74 U/L (46-116) B-Type Natriuretic Peptide 6.47 pg/mL (0-100) Total Protein 7.1 g/dL (5.7-8.2) Albumin 4.3 g/dL (3.2-4.8) Lipase 34 U/L (12-53) Other Laboratory Tests 12/01/24 04:43 Brief Hx & Hospital Course: This is a 49-year-old female patient who presents to emergency room with chief complaint of chest pain. The patient reports that the chest pain began at approximately 9:00 p.m. last night. She describes it as unprovoked, intermittent, squeezing in nature, substernal with radiation to her back. Associated symptoms include nausea. Initial twelve lead electrocardiogram reveals sinus tachycardia without any significant ST segment changes. Serial troponin levels have been negative. Significant past medical history includes hypertension, dyslipidemia, type 2 diabetes mellitus, diverticulitis, and osteoarthritis. Of note, the patient recently underwent a right hip replacement on 11/27/2024 at this facility (under different ). She is admitted and evaluated by home office claim specialist. Patient's troponins have been negative. EKGs normal. Tele did not show any acute cardiac arrhythmia. Patient had an echocardiogram showed a normal ejection fraction. Patient treated for possible GI symptoms with proton pump inhibitor. Patient's symptoms have improved. Patient is clinically stable. Having had necessary cardiac workup and clinically being stable it is felt she could be safely discharged home. However she is advised to follow up with the Cardiology for outpatient stress test as recommended by Cardiology. I have talked with the patient regarding this. She has verbalized understanding of this and given clinically stable she has been discharged home. Patient also verbalized understanding over hospital diagnosis, treatment she received, discharge medications, discharge instructions and agreed with follow-up plan of care as outlined. Consults/Reason for consult CONSULTATION REPORT . ................................................................................ ............................................................................... Date Seen: Dec 01, 2024 Referring Physician MD Derek Reason for Consultation Chest pain History of Present Illness This is a 49-year-old female patient who presents to emergency room with chief complaint of chest pain. The patient reports that the chest pain began at approximately 9:00 p.m. last night. She describes it as unprovoked, intermittent, squeezing in nature, substernal with radiation to her back. Associated symptoms include nausea. Initial twelve lead electrocardiogram reveals sinus tachycardia without any significant ST segment changes. Serial troponin levels have been negative. Significant past medical history includes hypertension, dyslipidemia, type 2 diabetes mellitus, diverticulitis, and osteoarthritis. Of note, the patient recently underwent a right hip replacement on 11/27/2024 at this facility (under different ). Assessment Chest pain Rule out structural heart disease Hypertension Dyslipidemia Pulmonary embolism ruled out Type 2 diabetes mellitus Osteoarthritis Plan/Recommendation We will continue with following plan/recommendations (Dr. Reeves): * Transthoracic echocardiogram to evaluate cardiac function * Chest pain protocol * HEART score: 3 points * CTA negative for PE * Cardiac surveillance: notify Cardiology for any ECG changes * Check UDS Case discussed with . The patient has been experiencing chest pain, 12 lead electrocardiogram shows no ST segment changes and serial troponin levels have been negative. If cardiac symptoms persist, the patient may benefit from a nuclear stress test. Further recommendations per clinical course and progression. Thank you for allowing us to care for this patient. Please call with any questions or concerns. Critical care time spent: 43 minutes This medical document was created using an electronic medical record system with voice recognition software and computerized dictation system. Although this document has been carefully reviewed, there might still be some phonetic and typographical errors. Occasional wrong-word or ``sound-alike substitutions may have occurred due to the inherent limitations of voice recognition software. These areas are purely typographical due to imperfections of the software programs and do not reflect any compromise in the patient's medical care. Please read the chart carefully and recognize, using context, where these substitutions have occurred. Plan discussed with: Patient NYHA 2 Physical activity limitations: NA Date of Service: Dec 01, 2024 Billing Provider: ALLEN MURILLO Cardiology Common Codes: [id number] INP/OBS CARE (High) Cardiology Consultation Codes: [id number] CONSULT <45MIN ALLEN MURILLO Dec 01, 2024 15:44 Operations or Procedures EXAM: Two-dimensional and M-mode echocardiogram with Doppler and color Doppler. Blood Pressure: 109/64 mmHg INDICATION Chest Pain RISK FACTORS Obesity: Height: 5' 7", Weight: 230 DIMENSIONS LVDd 3.4 (3.8-5.7cm) LA (2D) 3.6 (1.9-4.0cm) Aortic Root 2.9 (2.0- 3.7cm) LVDs 2.6 (2.5-4.0cm) LA (MM) (1.9-4.0cm) Aortic Cusp Exc 1.6 (1.5- 2.0cm) EF (%) 50.0 (55-70%) Rt. Atrium (1.9-4.0cm) Asc. Aorta cm IVSd 1.0 (0.7-1.1cm) RV (D) (1.8-2.4cm) PWd 0.9 (0.7-1.1cm) Mitral Valve Mitral Mitral Stenosis E wave 0.80m/s MV Mean GR. mmHg A wave 1.20m/s MV Peak GR. mmHg E/A ratio 0.7 2D MVA cm2 Aortic Valve Aortic Valve Aortic Stenosis V1 1.10m/s AO Mean GR. 4mmHg V2 1.20m/s AO Peak GR. 7mmHg LVOT Diameter 2.0 (1.8-2.4cm) Doppler EDI 2.88cm2 Pulmonic Valve V2 1.00m/s Other Information Quality : Technically Limited Rhythm : Tachycardia Technically limited study due to body habitus and rhythm. Conclusion Sinus tachycardia. Concentric LVH. Septal hypertrophy. Mild aortic root enlargement. Left atrial enlargement. Dilation of the sinuses of Valsalva. Mild calcification of the sinuses. The mitral and tricuspid are structurally normal. Left ventricular function is preserved. EF is about 50-55% with normal RV function. Dopplers unremarkable. No pericardial effusion masses or vegetations. SIGNED BY: LOKI REEVES Sr., MD SIGNED DATE/TIME: 12/02/24 4615 Condition at Discharge: Stable Final Diagnosis/Problems List Chest pain, status post recent right hip surgery Discharge Disposition: Home Discharge Instruct/Medications Diet: Consistent carbohydrate, Cardiac 2g Na,low cholest Activity: No Restrictions, As Tolerated Follow Up/Referral: Dr. Akhil farmer Cardiology next week for outpatient stress test. Follow up with your orthopedic surgeon as your scheduled postop hip surgery follow up. Medications: Home medications as you were taking and as prescribed New Medications: Pantoprazole Sodium Sesquihydr (Pantoprazole Sodium) 40 Mg Tab 40 MG PO BID, #60 TAB Discharge Statement: "Patient was advised to return to the ER or call 911 if any headaches, dizziness, shortness of breath, chest pain, abdominal pain, bleeding, fevers, or worsening of medical condition. Patient was counseled about treatment plan, medications, possible side effects, patientverbalized understanding. All questions were answered to the best of my ability. This discharge took greater then 30 minutes in planning, reviewing documentation, counseling the patient, and discussing with other team members." ASSESSMENT ASSESSMENT Assessment Chest pain, status post recent right hip surgery JANETTE TORRES MD Dec 02, 2024 15:29
[2024-12-02] MEDS ORDERED: PANT40T PO (15:42)
== END 2024-12-02 19:06 | disposition home or self-care (01) | DRG 203 ==
LOC: ER 04:38 → OVERFLOW 04:38 → EDBD 04:38 → OVERFLOW 11:40 → TELE-EAST 11:41
PROVIDERS: ADMIT Hospitalist; ATTEND Hospitalist
DX: M94.0 Chondrocostal junction syndrome [Tietze] (principal); E11.9 Type 2 diabetes mellitus without complications; E66.9 Obesity, unspecified; E78.5 Hyperlipidemia, unspecified; I10 Essential (primary) hypertension; I08.0 Rheumatic disorders of both mitral and aortic valves; K21.9 Gastro-esophageal reflux disease without esophagitis; Z96.641 Presence of right artificial hip joint; Z88.5 Allergy status to narcotic agent; Z68.36 Body mass index [BMI] 36.0-36.9, adult
CPT/HCPCS: 36415; 71045; 71275; 80053; 80061; 82962; 83036; 83605; 83690; 83735; 83880; 84439; 84443; 84484; 85025; 85379; 85610; 85730; 87040; 87081; 93005; 93306; 96374; 96375; 97163; 99291; G0378; J2405; J2470

== ENCOUNTER 2024-12-07 08:05 | Emergency (ER) | payer MEDICAID ==
[~2024-12-07] VITALS: Ht 167.6 cm; Wt 100.5 kg
[~2024-12-07 08:05] MED LIST: PANT40T PO
[2024-12-07 08:39] VITALS: TEMP 98.1
[2024-12-07 08:45] VITALS: PULSE 101; RESP 12; O2SAT 98
--- NOTE | 2024-12-07 08:59 | ED.PDOC ---
History of Present Illness HPI Comments 49 y/o obese F, with a history of osteoarthritis, scoliosis, previous right-hip surgery, DM II, HLD, and HTN, is BIBA for c/o right-hip pain s/p mechanical fall and injury, today. Per EMS report, patient endorses on onset of hip pain after sustaining a fall-injury onto her right-side without lost of consciousness, while ambulating to her bathroom, this morning. Patient states on having no prior symptoms and having a fall, due to her "right knee giving up" then. She denies sustaining any additional injuries, weakness, numbness, tingling, dizziness, or other associated symptoms or modifiers at this time. Patient was noted by EMS staff to have had a blood glucose of 134 and was given 100g of fentanyl en route, with moderate improvement to pain. Chief Complaint: Fall Injury Time Seen by MD: 08:30 Primary Care Provider: Dr. Romero Reviewed Notes: Nurses Notes, [employer] De[employer] Lead Notes, Medications, Allergies Allergies: Coded Allergies: Codeine (Verified Allergy, Unknown, 12/01/24) Home Meds Active Scripts Pantoprazole Sodium Sesquihydr (Pantoprazole Sodium) 40 Mg Tab, 40 MG PO BID, #60 TAB Prov:JANETTE TORRES MD 12/02/24 Information Source: Patient, Emergency Med Personnel Mode of Arrival: EMS Severity: Moderate Timing: Hours Duration: Since onset Prehospital treatment: 12 Lead EKG, Accucheck (134), Body Masker, Pain Meds (100g fentanyl ) Past Medical History PAST MEDICAL HISTORY: Arthritis (osteoarthritis), DM (type II ), High Lipids, HTN Past Medical History (Other): scoliosis obesity Surgical History: Hysterectomy (complete) Surgical History (Other): right-hip and eye surgery MEDICAL RESEARCH TECH History: Denies all MEDICAL RESEARCH TECH Hx Family History Family History: Unknown Social History Smoker: Quit Less Than 1 Year Alcohol: Denies ETOH Use Drugs: Marijuana (former use <1 year) Lives In: Home All Other Systems: Reviewed and Negative (Comprehensive systems review obtained and negative except for what is stated in the HPI.) Physical Exam General Appearance: Moderate Distress HEENT: Normal ENT Inspection, Pharynx Normal, TMs Normal Neck: Full Range of Motion, Non-Tender, Normal, Normal Inspection Respiratory: Chest Non-Tender, Lungs Clear, No Accessory Muscle Use, No Respiratory Distress, Normal Breath Sounds Cardiovascular: No Edema, No JVD, No Murmur, No Gallop, Normal Peripheral Pulses, Regular Rate/Rhythm Breast Exam: Deferred Gastrointestinal: No Organomegaly, Non Tender, No Pulsatile Mass, Normal Bowel Sounds, Soft Genitalia: Deferred Pelvic: Deferred Rectal: Deferred Extremities: No calf tenderness, Normal capillary refill, Normal inspection, Normal range of motion, Non-tender, No pedal edema Musculoskeletal : Apperance: Normal Neurologic: Alert, director intelligence analysis programs II-XII nml as Tested, No Motor Deficits, Normal Affect, Normal Mood, No Sensory Deficits Cerebellar Function: NOT DONE Reflexes: NOT DONE Skin: Dry, Normal Color, Warm Peripheral Pulses: 3+ Radial (R), 3+ Radial (L) Lymphatic: No Adenopathy Was a procedure done? Was a procedure done?: No Differential Dx Considerations may include: fractures, dislocation, contusions, bruising, musculoskeletal pain, among others X-Ray, Labs, Meds, VS Vital Signs Date Time Temp Pulse Resp B/P (MAP) Pulse Ox O2 Delivery O2 Flow Rate FiO2 12/07/24 08:21 98.5 107 17 120/91 (101) 95 98.5 Patient alert. Complaining of right hip pain. X-ray does not show any fracture dislocation. Vitals stable. Answering questions. Moving all extremities. Physical examination pristine. Good pulses. No chest pain. No shortness a breath. Abdomen is soft nontender. Reviewed her history. Explained to the patient. Was told to follow up with her primary care physician. Was told to come back if there is any problem. Time of 1ST Reevaluation: 09:00 Reevaluation 1ST: Improved Patient Education/Counseling: Diagnosis, Treatment Family Education/Counseling: No Family Present Additional Information Previous medical encounters reviewed: December 01, 2024 encounter for chest/epiga stric pain The following tests were ordered, and results were reviewed by me: Pelvis AP X- ray Additional Information was gathered from interviewing the following independent historians: EMS I reviewed and agreed with the following test results read by other providers: Pelvis AP X-ray I discussed treatment and results with medical personnel and: Patient Departure 1 Departure Time of Disposition: 09:40 Impression: Primary Impression: Muscle strain Disposition: HOME / SELF CARE / HOMELESS Condition: Good Discharged With: Self Critical Care Note Critical Care Time?: No Stability Stability form required: No Heart Score Heart Score: Heart Score Response (Comments) Value History N/A 0 EKG N/A 0 Age N/A 0 Risk Factors N/A 0 Troponin N/A 0 Total 0 I personally scribed for LULY URENA MD ([email or web address]) on 12/07/24 at 08:59. Electronically submitted by Duran Ruvalcaba ([email or web address]). I personally scribed for LULY URENA MD ([email or web address]) on 12/07/24 at 09:01. Electronically submitted by Duran Ruvalcaba ([email or web address]). LULY URENA MD Dec 07, 2024 08:59
[2024-12-07] MEDS: MORPHINE SULFATE 4 MG/ML SYR/VIAL IV ONE (09:00)
[2024-12-07] MEDS: ONDANSETRON HCL 4 MG/2 ML VIAL IV ONE (09:00)
--- NOTE | 2024-12-07 09:31 | DVH ---
CLINICAL INDICATION: pain; fx TECHNIQUE: 1 radiographic views of the pelvis were obtained. Comparison: None FINDINGS/IMPRESSION: There is no evidence of acute fracture or dislocation. Status post right hip arthroplasty.
[2024-12-07 11:00] VITALS: BP 106/80; PULSE 101; RESP 14; O2SAT 98
== END 2024-12-07 11:17 | disposition home or self-care (01) ==
LOC: EDBD 08:05 → ER 08:06
DX: S76.011A Strain of muscle, fascia and tendon of right hip, initial encounter (principal); M19.90 Unspecified osteoarthritis, unspecified site; E11.9 Type 2 diabetes mellitus without complications; E78.5 Hyperlipidemia, unspecified; E66.9 Obesity, unspecified; I10 Essential (primary) hypertension; Z90.710 Acquired absence of both cervix and uterus; Z96.641 Presence of right artificial hip joint; Z98.890 Other specified postprocedural states; Z79.899 Other long term (current) drug therapy; Z88.5 Allergy status to narcotic agent; W19.XXXA Unspecified fall, initial encounter; Y93.89 Activity, other specified; Y92.89 Other specified places as the place of occurrence of the external cause; Y99.8 Other external cause status
CPT/HCPCS: 72170